=== PATIENT | female | born 1995 ===

== ENCOUNTER 2021-12-16 23:31 | Emergency (ER) | payer SELFPAY ==
[2021-12-17 04:47] VITALS: BP 122/72
== END 2021-12-17 04:15 | disposition left against medical advice (07) ==
LOC: ED 23:31
DX: O20.8 Other hemorrhage in early pregnancy (principal); Z53.21 Procedure and treatment not carried out due to patient leaving prior to being seen by health care provider; Z3A.01 Less than 8 weeks gestation of pregnancy